=== PATIENT | female | born 1940 | race Caucasian/White ===

== ENCOUNTER 2019-11-29 11:09 | Emergency (ER) | payer MEDICARE, OTHER, SELFPAY ==
[2019-11-29] VITALS (20 sets, daily range): BP systolic 150–182; BP diastolic 65–92; PULSE 63–87; RESP 18–39; TEMP 35.7; O2SAT 86–100
--- NOTE | ~2019-11-29 | CT_ITS ---
EXAMINATION: CT abdomen pelvis w con EXAM DATE: 11/29/2019 12:20 INDICATION: Generalized abdominal pain, vomiting and nausea. TECHNIQUE: Spiral CT of the abdomen and pelvis was performed following intravenous injection of 100 m L Omnipaque 350. Axial, coronal and sagittal images were reviewed. The dose-length product (DLP) fo r this examination was 417.33 mGy-cm. The exposure was tailored according to patient size (auto mA e xposure control), and iterative reconstruction (ASIR) was used as additional dose reduction technique . Comparison is made to prior examination from 12/06/2018. FINDINGS: There is decreased enhancement along the body and head of the pancreas, which appears edema tous. There is extensive inflammation surrounding the pancreas. Most likely acute pancreatitis. Can't exclude early pancreatic necrosis involving approximately one third of the pancreas. Small amount o f ascites. Liver, spleen, adrenal glands are unremarkable. There are cholecystectomy clips. Portal and splenic veins are patent. Kidneys enhance symmetrically. There is no hydronephrosis. There are bilateral renal peripelvic cysts. The uterus is not identified and has likely been surgically resect ed. The bladder is unremarkable. There is no retroperitoneal or pelvic lymphadenopathy. There is mild scattered arteriosclerotic disease. The appendix is normal. There is small sliding gastroesophageal hiatal hernia. There is moderate sig moid colonic diverticulosis. There is no adjacent inflammatory change to suggest diverticulitis. No free intraperitoneal gas. Cardiomegaly. Sternotomy wires. There are bibasilar linear opacities, s ubsegmental atelectasis. There are no osteoblastic or osteolytic lesions identified. IMPRESSION: 1. Findings consistent with severe acute pancreatitis. Can't exclude early pancreatic necrosis. 2. Colonic diverticulosis. 3. Cardiomegaly. Reviewed, dictated and finalized at location B. IMPRESSION: 1. Findings consistent with severe acute pancreatitis. Can't exclude early layne creatic necrosis. 2. Colonic diverticulosis. 3. Cardiomegaly.
[2019-11-29 11:40] LABS: Hematocrit 44.9 % (37.0-47.0); Mean Corpuscular HGB Conc 33.4 g/dl (32-36); Mean Corpuscular Hemoglobin 29.3 pg (26-34); Mean Corpuscular Volume 87.7 fl (80-100); Mean Platelet Volume 10.5 fl (7.4-10.4); Platelet Count Result 235 k/mm3 (150-375); Red Blood Count 5.12 M/mm3 (4.2-5.4); Red Cell Distribution Width 12.7 % (11.5-14.5); White Blood Count 22.9 K/mm3 (4.5-10.0)
[2019-11-29 11:42] LABS: Add Urine Microscopic? NO; Appearance Urine Clear (Clear); Bilirubin Urine Negative (Negative); Blood Urine Negative (Negative); Color Urine Straw (Yellow); Glucose Urine UA Negative (Negative); Ketones Urine Negative (Negative); Leukocyte Esterase Ur Negative LEU/UL (Negative); Nitrate Urine Negative (Negative); Protein Urine Negative (Negative); Specific Grav Ur 1.013 (1.001-1.035); Urobilinogen Urine Negative mg/dL (<2.0)
[2019-11-29 11:57] LABS: Alanine Aminotransferase 25 U/L (4-35); Albumin Level 4.5 g/dL (3.5-5.1); Alkaline Phosphatase 88 U/L (38-126); Anion Gap 11 mmol/L (8-16); Aspartate Amino Transferase 30 U/L (14-36); Bilirubin,Total 0.9 mg/dL (0.2-1.3); Blood Urea Nitrogen 14 mg/dL (7-17); Calcium 9.4 mg/dL (8.4-10.2); Carbon Dioxide 22 mmol/L (22-30); Chloride 106 mmol/L (98-107); Estimated CRCL calculation 56 ml/min; Estimated Glomerular Filt Rate > 60; Glucose 180 mg/dL (65-105); Potassium 3.6 mmol/L (3.4-5.0); Sodium 139 mmol/L (137-145)
--- NOTE | 2019-11-29 12:04 | ED.ABDPAIN ---
HPI - Abdominal Pain General Chief Complaint: Abdominal Pain <Kalyan May PA-C - Last Filed: 11/29/19 14:14> Stated Complaint: abd pain <Kalyan Mya PA-C - Last Filed: 11/29/19 14:14> Time Seen by Provider: 11/29/19 11:42 <RENE Villagran Last Filed: 11/29/19 14:14> Source: patient <Kalyan May PA-C - Last Filed: 11/29/19 14:14> Mode of arrival: ambulatory <RENE Villagran Last Filed: 11/29/19 14:14> Limitations: no limitations <Kalyan May PA-C - Last Filed: 11/29/19 14:14> History of Present Illness HPI narrative: Patient is an 79-year-old female who presents with severe abdominal pain that began this morning patient had felt fine yesterday did eat at [employer] last night notes severe cramping and pain throughout the abdomen with associated dry retching denies rectal bleeding or melena or hematemesis patient has not taken anything for her symptoms presents in acute pain <Kalyan May PA-C - Last Filed: 11/29/19 14:14> Related Data Home Medications: Home Medications Medication Instructions Recorded Confirmed simvastatin 40 mg PO DAILY 11/29/19 <Kalyan May PA-C - Last Filed: 11/29/19 14:14> Allergies/Adverse Reactions: Allergies Allergy/AdvReac Type Severity Reaction Status Date / Time rocuronium Allergy Severe Swelling Verified 11/29/19 13:52 of Lip/Tongue/Throat <Kalyan May PA-C - Last Filed: 11/29/19 14:14> Review of Systems Review of Systems: All systems reviewed & are unremarkable except as noted in HPI and below <Kalyan May PA-C - Last Filed: 11/29/19 14:14> [facility] Surgical History Surgical History: Surgical History History of cholecystectomy <RENE Villagran Last Filed: 11/29/19 14:14> Social History Social History: Social History Smoking status: Never smoker Alcohol intake: current <Kalyan May PA-C - Last Filed: 11/29/19 14:14> Exam Narrative: Exam Narrative: GENERAL: Ill-appearing, uncomfortable, well-nourished, and in no acute distress. HEAD: Normocephalic, atraumatic. EYES: PERRLA and EOMI. ENT: Nares clear, no rhinorrhea or epistaxis. Mucous membranes moist. CHEST: Clear to auscultation. No respiratory distress. No wheezes rales or rhonchi HEART: Regular rate and rhythm. No murmur heard. Normal peripheral pulses. ABDOMEN: Soft, grossly tender,distended, diminished bowel sounds EXTREMITIES: Normal range of motion. No edema. SKIN: Warm, dry, no rash. NEURO: No focal deficits. Alert and oriented x3. Cranial nerves II through XII grossly intact PSYCH: Normal mood and affect. <Kalyan May PA-C - Last Filed: 11/29/19 14:14> Course LUMBER INSPECTOR/PA Physician Supervision Attestation for Kalyan May at 1322. [id number] with the patient and her . Patient said the severe abdominal pain started this morning. She vomited once. She had pancreatitis last year and had her gallbladder removed. She has been fine since. While I was seeing her, she started with bed shaking chills. Her forehead feels warm but her hands are very cool. We will check her temperature, get blood cultures, IV fluids, and IV Zosyn. She currently does not have any nausea. She did not answer about the level of pain. She will be transferred to [place] for the severe pancreatitis. <Amy Carranza MD - Last Filed: 11/30/19 07:07> Consultations Consultation #1: Discussed case with on-call car restorer who is recommended transferring the patient to tertiary facility Discussed case with gastroenterology and hospitalist service at [facility] who has accepted the patient pending bed availability with no further instructions at this time <Kalyan May PA-C - Last Filed: 11/29/19 14:14> Date: 11/29/19 <RENE Villagran
[2019-11-29 12:08] LABS: Band Neutrophils Percent 7 % (0-6); Lymphocytes Absolute Manual 3.66 K/mm3 (1.1-4.5); Lymphocytes Percent Manual 16 % (18-44); Neutrophils Absolute Manual 18.32 K/mm3 (1.7-7.2); Neutrophils Percent Manual 73 % (46-73); Total Cells Counted 100
[2019-11-29 12:09] LABS: Monocytes Absolute Manual 0.91 K/mm3 (0.1-0.90); Monocytes Percent Manual 4 % (3-9); Platelet Estimate Adequate (Adequate)
[2019-11-29 12:11] LABS: Lactic Acid Reflex 3.7 mmol/L (0.7-2.1)
[2019-11-29] MEDS: MORPHINE SULFATE 4 MG/ML INJ IV PUSH ×4 (12:11→18:43)
[2019-11-29] MEDS: SODIUM CHLORIDE 0.9% IV 1,000 ML 999 ML IV CONT ×2 (12:11→13:34)
[2019-11-29] MEDS: ONDANSETRON INJ 4 MG/2 ML VIAL IV PUSH (12:11)
[2019-11-29] MEDS: PANTOPRAZOLE SODIUM IV 40 MG VIAL IV PUSH (12:11)
[2019-11-29 12:16] LABS: Lipase 15329 U/L (23-300)
--- NOTE | 2019-11-29 13:08 | PC.NURSE ---
1st L of NS still infusing, unable to start 2nd L
[2019-11-29 14:58] LABS: Reflex Lactic Acid Yes or No Add Lactic
[2019-11-29] MEDS: SODIUM CHLORIDE 0.9% IV 1,000 ML 500 ML IV CONT (15:19)
[2019-11-29 16:52] LABS: Lactic Acid 3.6 mmol/L (0.7-2.1)
== END 2019-11-29 18:42 | disposition short-term general hospital (02) ==
PROVIDERS: Emergency Medicine Emergency Medical Services; Emergency Provider Emergency Medicine; PCP Internal Medicine
DX: K85.90 Acute pancreatitis without necrosis or infection, unspecified (principal); R68.83 Chills (without fever); E87.2 Acidosis; D72.829 Elevated white blood cell count, unspecified
CPT/HCPCS: 36415; 51701; 74177; 80053; 81003; 83605; 83690; 85025; 87040; 96361; 96365; 96375; 96376; 99291; C9113; J2270; J2405; J2543; J7030; Q9967

== ENCOUNTER → 2021-10-08 07:47 | Outpatient (CLI) | payer MEDICARE, OTHER, SELFPAY ==
--- NOTE | ~2021-10-08 | MR_ITS ---
EXAMINATION: MR lumbar spine wo con DATE: 10/08/2021 08:34 INDICATION: Low back pain . TECHNIQUE: Magnetic resonance imaging (MRI) of the lumbar spine was performed without intravenous con trast. Sequences included sagittal T2-weighted FSE, sagittal T2-weighted FS FSE, sagittal T1-weighted FSE, and axial T2-weighted FSE. COMPARISON: None FINDINGS: The last fully formed and hydrated disc is designated L5-S1. The marrow signal is benign an d homogenous. Conus terminates at T12-L1. Multilevel disc dehydration. Bilateral peripelvic renal cys ts. The following disc levels are specifically discussed: T11-T12: The disc does not extend beyond the endplate margin. There is no facet joint osteoarthritis. There is no neural foraminal stenosis. There is no central canal stenosis. T12-L1: The disc does not extend beyond the endplate margin. There is mild facet joint osteoarthritis . There is no neural foraminal stenosis. There is no central canal stenosis. L1-L2: Mild diffuse bulge. There is mild facet joint osteoarthritis. There is mild right inferior malcolm ral foraminal stenosis. There is no central canal stenosis. L2-L3: Moderate diffuse bulge with a circumferential tear in the annulus fibrosis in the right forami nal/lateral disc. There is moderate facet joint osteoarthritis. There is mild bilateral neural forami nal stenosis. There is mild central canal stenosis. L3-L4: Moderate diffuse bulge with a circumferential disc present in the left foraminal/lateral disc. There is moderate facet joint osteoarthritis. There is mild bilateral neural foraminal stenosis. The re is mild central canal stenosis. L4-L5: Moderate diffuse bulge with a broad-based 3 mm left inferior foraminal protrusion. There is mo derate facet joint osteoarthritis. There is mild bilateral neural foraminal stenosis. There is modera te central canal stenosis. L5-S1: Mild diffuse bulge. There is moderate facet joint osteoarthritis. There is no neural foraminal stenosis. There is no central canal stenosis. IMPRESSION: 1. Moderate degenerative disc disease at L4-5 with a left inferior foraminal protrusion causing mild bilateral neural foraminal and moderate central canal stenosis. 2. Annular tears in the L2-3 and L3-4 discs, with moderate degenerative disc disease. 3. Multilevel moderate facet arthropathy. Reviewed, dictated and finalized at location K. IMPRESSION: 1. Moderate degenerative disc disease at L4-5 with a left inferior foraminal pr otrusion causing mild bilateral neural foraminal and moderate central canal dewey nosis. 2. Annular tears in the L2-3 and L3-4 discs, with moderate degenerative disc di sease. 3. Multilevel moderate facet arthropathy.
== END ==
PROVIDERS: PCP Internal Medicine
DX: M51.36 Other intervertebral disc degeneration, lumbar region (principal)
CPT/HCPCS: 72148